=== PATIENT | female | born 2000 | race Caucasian/White ===

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

== ENCOUNTER 2021-04-23 00:44 | Emergency (ER) | payer MEDICAID ==
[~2021-04-23] VITALS: Ht 172.7 cm; Wt 120.0 kg
[2021-04-23 00:58] VITALS: BP 150/76
[2021-04-23 02:27] LABS: HCG UR SG 1.014 (1.003-1.030); MICROSCOPIC NOT IND
[2021-04-23] MEDS ORDERED: PHENAZOPYRIDINE 200 MG TABLET PO ONE (03:30)
[2021-04-23 04:13] LABS: CLUE CELLS NONE SEEN (NONE SEEN); WET PREP WBCS NONE SEEN (FEW)
--- NOTE | 2021-04-23 04:36 | NUR ---
Patient given discharge instructions and they have confirmed that they understand the instructions. Patient ambulatory with steady gait. NAD, all questions answered appropriately, denies additional needs at this time. No personal belongings left in room after discharge.
== END 2021-04-23 04:38 | disposition home or self-care (01) ==
LOC: ED 04:00
DX: R30.0 Dysuria (principal)
CPT/HCPCS: 81003; 81025; 87210; 87491; 87591; 87808; 99284